=== PATIENT | male | born 1970 | race Caucasian/White ===

== ENCOUNTER 2017-10-06 12:40 | Emergency (ER) | payer OTHER ==
[~2017-10-06] VITALS: Ht 185.4 cm; Wt 106.6 kg
[~2017-10-06 12:40] MED LIST: KEFLEX500 MG PO; NORCO 5-325 TA1 EACH PO
[2017-10-06 12:47] VITALS: BP 123/79
== END 2017-10-06 14:50 | disposition home or self-care (01) ==
LOC: ER 12:40
DX: M19.011 Primary osteoarthritis, right shoulder (principal); M19.012 Primary osteoarthritis, left shoulder; M17.0 Bilateral primary osteoarthritis of knee; M54.2 Cervicalgia; F17.210 Nicotine dependence, cigarettes, uncomplicated

== ENCOUNTER → 2020-06-13 | Outpatient (CLI) | payer OTHER | LOC: LAB 10:38 | PROVIDERS: ATTEND Anesthesiology | DX: Z01.812 Encounter for preprocedural laboratory examination (principal); Z20.822 Contact with and (suspected) exposure to COVID-19 ==